=== PATIENT | male | born 1945 | race African-American/Black ===

== ENCOUNTER 2019-07-12 23:27 | Inpatient (IN) | payer MEDICARE ==
[~2019-07-12] VITALS: Ht 177.8 cm; Wt 91.6 kg
[2019-07-13] MEDS ORDERED: NITROGLYCERIN 0.4MG TABLET SL SL PRN
[2019-07-13 00:30] LABS: BASOPHILS % 1.3 % (0.0-2.0); EOSINOPHILS % 4.9 % (0.0-5.0); HEMATOCRIT. 37.5 % (42.0-52.0); HEMOGLOBIN. 12.5 g/dL (14.0-18.0); LYMPHOCYTES % 38.8 % (20.0-50.0); MEAN CORPUSCULAR HEMOGLOBIN 26.9 pg (28.0-32.0); MEAN CORPUSCULAR VOLUME 80.8 fL (80.0-94.0); MEAN PLATELET VOLUME 7.4 fl (7.4-10.4); MONOCYTES % 9.2 % (2.0-8.0); NEUTROPHILS % 45.8 % (40.0-76.0); PLATELET 216 x1000/uL (130-400); RED BLOOD CELL COUNT 4.64 mill/uL (4.7-6.1); RED CELL DISTRIBUTION WIDTH 15.9 % (11.6-14.6)
[2019-07-13 00:36] LABS: CHLORIDE 107 mEq/L (98-107)
[2019-07-13 08:35] VITALS: BP 145/77
[2019-07-13] MEDS ORDERED: SACU1TAB4 MT (10:12)
[2019-07-13] MEDS ORDERED: METO25TA6 PO (10:21)
[2019-07-13] MEDS ORDERED: OMEP20CA5 PO (10:21)
[2019-07-13] MEDS ORDERED: OXYC10TA58 PO (10:21)
[2019-07-13] MEDS ORDERED: HYDR12.529 PO (10:21)
[2019-07-13] MEDS ORDERED: TAMS-11 PO (10:21)
[2019-07-13] MEDS ORDERED: METF-416 PO (10:21)
[2019-07-13] MEDS ORDERED: FISH GT (10:21)
[2019-07-13] MEDS ORDERED: ASPI-1393 PO (10:21)
[2019-07-13] MEDS ORDERED: ATOR-2 PO (10:21)
[2019-07-13] MEDS ORDERED: ZINC50TA69 PO (10:21)
[2019-07-13] MEDS ORDERED: ACETAMINOPHEN 325MG TABLET PO PRN (11:15)
[2019-07-13] MEDS ORDERED: HYDROCODONE/APAP 7.5/325MG 1 TAB TABLET PO PRN (11:15)
[2019-07-13] MEDS ORDERED: IPRATROPIUM/ALBUTEROL 0.5-3(2.5)MG/3ML NEB INH PRN (11:15)
[2019-07-13] MEDS ORDERED: DOCUSATE SODIUM 100MG CAPSULE PO PRN (11:15)
[2019-07-13] MEDS ORDERED: CLONIDINE 0.1MG TABLET PO PRN (11:15)
[2019-07-13] MEDS ORDERED: ONDANSETRON HCL 4MG/2ML INJ IV PRN (11:15)
[2019-07-13] MEDS ORDERED: DEXTROSE 50% WATER 50ML SYRINGE IV PRN (11:15)
[2019-07-13] MEDS ORDERED: NA PHOS,M-B/NA PHOS,DI-BA ENEMA 118ML PR PRN (11:15)
[2019-07-13] MEDS ORDERED: MAGNESIUM/ALUMINUM HYDROXIDE/SIMETHICONE 30ML UDC PO PRN (11:15)
[2019-07-13] MEDS ORDERED: DIPHENHYDRAMINE 50MG/ML VIAL IV PRN (11:15)
[2019-07-13] MEDS ORDERED: GUAIFENESIN 200MG/10ML SUGAR FREE UDC PO PRN (11:15)
[2019-07-13] MEDS ORDERED: LORAZEPAM 0.5MG TABLET PO PRN (11:15)
[2019-07-13] MEDS ORDERED: ACETAMINOPHEN 650MG SUPP PR PRN (11:15)
[2019-07-13] MEDS ORDERED: ENOXAPARIN 40MG/0.4ML SYR SUBCUT SCH (12:00)
[2019-07-13 12:17] VITALS: BP 147/80
[2019-07-13] MEDS: BLOOD SUGAR DIAGNOSTIC STRIP TEST SCH ×3 (12:32→21:06)
[2019-07-13] MEDS: INSULIN LISPRO 100 UNITS/ML SUBCUT SCH ×3 (12:33→21:00)
[2019-07-13 16:13] VITALS: BP 147/63
[2019-07-13 16:16] LABS: CREATINE KINASE MB FRACTION 2.2 ng/mL (0.5-3.6)
[2019-07-13] MEDS: METFORMIN HCL 500MG TABLET PO SCH (17:52)
[2019-07-13 19:28] LABS: CLARITY URINE CLEAR (CLEAR); COLOR URINE YELLOW (YELLOW); KETONES URINE NEGATIVE (NEGATIVE); LEUKOCYTE ESTERASE URINE NEGATIVE (NEGATIVE); NITRITE URINE NEGATIVE (NEGATIVE); OCCULT BLOOD URINE NEGATIVE (NEGATIVE); PH URINE 7.5 (4.5-8.0); PROTEIN URINE NEGATIVE (NEGATIVE); SPECIFIC GRAVITY URINE 1.007 (1.005-1.030); UROBILINOGEN URINE 0.2 E.U./dL (0.2-1.0)
[2019-07-13 20:42] VITALS: BP 131/68
[2019-07-13] MEDS: ATORVASTATIN CALCIUM 40MG TABLET PO SCH (21:16)
[2019-07-13] MEDS: METOPROLOL TARTRATE 25MG TABLET PO SCH (21:17)
[2019-07-13] MEDS: ENTRESTO PO SCH (21:17)
[2019-07-14 00:05] VITALS: BP 129/62
[2019-07-14 04:48] VITALS: BP 121/68
[2019-07-14 06:00] LABS: CHLORIDE 107 mEq/L (98-107)
[2019-07-14 06:09] LABS: LDL CHOLESTEROL 67 mg/dL (5-100)
[2019-07-14 06:11] LABS: HDL CHOLESTEROL 29 mg/dL (40-59); T4 FREE 0.94 ng/dL (0.76-1.46)
[2019-07-14 06:16] LABS: EOSINOPHILS % 4.3 % (0.0-5.0); HEMATOCRIT. 39.5 % (42.0-52.0); HEMOGLOBIN. 12.9 g/dL (14.0-18.0); LYMPHOCYTES % 42.9 % (20.0-50.0); MEAN CORPUSCULAR HEMOGLOBIN 26.3 pg (28.0-32.0); MEAN CORPUSCULAR VOLUME 80.5 fL (80.0-94.0); MEAN PLATELET VOLUME 8.1 fl (7.4-10.4); MONOCYTES % 9.1 % (2.0-8.0); NEUTROPHILS % 42.7 % (40.0-76.0); PLATELET 228 x1000/uL (130-400); RED BLOOD CELL COUNT 4.91 mill/uL (4.7-6.1); RED CELL DISTRIBUTION WIDTH 15.7 % (11.6-14.6)
[2019-07-14] MEDS: BLOOD SUGAR DIAGNOSTIC STRIP TEST SCH (06:35)
[2019-07-14] MEDS ORDERED: OMEPRAZOLE 20MG CAPSULE EXTENDED RELEASE PO SCH (07:20)
[2019-07-14] MEDS: INSULIN LISPRO 100 UNITS/ML SUBCUT SCH (07:50)
[2019-07-14] MEDS ORDERED: ASPIRIN 81MG EC TABLET PO SCH (09:00)
[2019-07-14] MEDS ORDERED: HYDROCHLOROTHIAZIDE 12.5MG CAPSULE PO SCH (09:00)
[2019-07-14] MEDS ORDERED: TAMSULOSIN HCL 0.4MG SR CAPSULE PO SCH (09:00)
[2019-07-14] MEDS ORDERED: FISH OIL/OMEGA-3 FATTY ACIDS 1000MG CAPSULE PO SCH (09:00)
[2019-07-14] MEDS ORDERED: ASPIRIN 81MG TABLET PO SCH (09:00)
[2019-07-14] MEDS: ATORVASTATIN CALCIUM 40MG TABLET PO SCH (10:01)
[2019-07-14] MEDS: METOPROLOL TARTRATE 25MG TABLET PO SCH (10:03)
[2019-07-14] MEDS: ENTRESTO PO SCH (10:04)
[2019-07-14] MEDS: METFORMIN HCL 500MG TABLET PO SCH (10:08)
[2019-07-14] MEDS ORDERED: REGADENOSON 0.4 MG/5 ML IV ONE (13:45)
[2019-07-14 17:05] LABS: METHADONE URINE SCREEN NEGATIVE (NEGATIVE); OPIATES URINE SCREEN NEGATIVE (NEGATIVE)
[2019-07-14 17:06] LABS: *AMPHETAMINES SCREEN URINE NEGATIVE (NEGATIVE); *BARBITURATES SCREEN URINE NEGATIVE (NEGATIVE); *BENZODIAZEPINES SCREEN URINE NEGATIVE (NEGATIVE); *COCAINE SCREEN URINE NEGATIVE (NEGATIVE); CANNABINOID URINE SCREEN NEGATIVE (NEGATIVE); PHENCYCLIDINE URINE SCREEN NEGATIVE (NEGATIVE)
== END 2019-07-14 14:42 | disposition left against medical advice (07) | DRG 313 ==
LOC: ER 23:27 → 6WST 07-13 01:46 → EDBEDREQTM 07-13 01:49 → EDBEDREQ 07-13 01:49 → ENRESERV 07-13 07:02 → 6WST 07-13 09:01
PROVIDERS: ADMIT Internal Medicine; ATTEND Internal Medicine
DX: R07.89 Other chest pain (principal); K21.9 Gastro-esophageal reflux disease without esophagitis; I25.10 Atherosclerotic heart disease of native coronary artery without angina pectoris; I10 Essential (primary) hypertension; N40.0 Benign prostatic hyperplasia without lower urinary tract symptoms; D64.9 Anemia, unspecified; J44.9 Chronic obstructive pulmonary disease, unspecified; Z53.21 Procedure and treatment not carried out due to patient leaving prior to being seen by health care provider; E11.65 Type 2 diabetes mellitus with hyperglycemia; Z95.1 Presence of aortocoronary bypass graft; Z79.82 Long term (current) use of aspirin; Z79.899 Other long term (current) drug therapy; Z79.84 Long term (current) use of oral hypoglycemic drugs
CPT/HCPCS: 36415; 71045; 80061; 80305; 81003; 82550; 82553; 82962; 83036; 83880; 84153; 84439; 84443; 84484; 85379; 93005; 93306; 93970; 96374; 97162; 99285; J1650; G0103